=== PATIENT | male | born 1945 | race Caucasian/White ===

== ENCOUNTER 2019-11-20 16:10 | Emergency (ER) | payer OTHER ==
[2019-11-20] MEDS ORDERED: BUFFERED LIDOCAINE 10 ML SYRINGE SUBQ STA (16:51)
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
[2019-11-20] MEDS ORDERED: BACITRACIN ZINC OINT 1 PACKET TOP STA (17:30)
[2019-11-20 17:50] VITALS: BP 150/85
== END 2019-11-20 17:53 | disposition home or self-care (01) ==
LOC: ED 16:10
DX: S61.412A Laceration without foreign body of left hand, initial encounter (principal); W26.0XXA Contact with knife, initial encounter; Y93.89 Activity, other specified; Y92.009 Unspecified place in unspecified non-institutional (private) residence as the place of occurrence of the external cause; Z79.01 Long term (current) use of anticoagulants
CPT/HCPCS: 12002; 99282; A9270